=== PATIENT | female | born 1995 | race Caucasian/White ===

== ENCOUNTER 2019-08-20 08:50 | Day surgery (SDC) | payer BC ==
[2019-08-20] MEDS ORDERED: Dextrose 5%-Lactated Ringers 1,000 ML IV SCH (09:30)
[2019-08-20] MEDS ORDERED: fentaNYL 100 MCG/2 ML SDV ONE (10:08)
[2019-08-20] MEDS ORDERED: Propofol 200 MG/20 ML SDV ONE (10:08)
[2019-08-20] MEDS ORDERED: Midazolam 1 MG/ML 2 ML SDV ONE (10:08)
[2019-08-20] MEDS ORDERED: Glycopyrrolate 0.2 MG/ML 2 ML SDV IVPUSH ONE (10:15)
--- NOTE | 2019-08-30 09:46 | OR ---
DATE OF PROCEDURE: 08/20/2019 SURGEON: Kamaljit Vazquez MD PREOPERATIVE DIAGNOSES: 1. Severe gastroesophageal reflux disease associated with moderate-sized hiatal hernia and wide-open esophagogastric junction. 2. Mild antral gastritis. OPERATIVE PROCEDURE: Esophagogastroduodenoscopy with: 1. Biopsies of esophagogastric junction. 2. Biopsies of antrum for CLOtest. ANESTHESIA: IV sedation. INDICATIONS FOR PROCEDURE: This is a 24-year-old presenting with clinically quite severe gastroesophageal reflux disease which has become refractory to medical management. After preop evaluation and discussion, she wished to proceed with an upper endoscopy with the aim of identifying her current anatomy and plans for subsequent anti-reflux procedure being performed. The potential risks of the procedure including bleeding and perforation were discussed, and the patient wishes to proceed. DETAILS OF PROCEDURE: The patient was taken to the operating room, placed in a left lateral decubitus position. IV sedation was administered, after which the upper GI endoscope was passed orally through length of the esophagus into the stomach with retroflexion view of the fundus, thereafter through the pyloric channel and into the junction of 3rd and 4th portions of the duodenum. Findings included some reddening of the hypopharynx and larynx, consistent with ongoing gastroesophageal reflux disease. The upper esophageal sphincter and esophageal body were unremarkable. As one approached the EG junction, the patient was noted to have 1 to 2 cm hiatal hernia, but also essentially wide-open esophagogastric junction with no angulation present. There was moderately active gastroesophageal reflux disease with the mucosa above the EG junction being friable and somewhat reddened. No ulcers were seen. Within the stomach, there was small amount of retained bile. There was some patchy redness in the antrum. Otherwise, the pyloric channel and visualized portions of the duodenum were unremarkable. At this point, biopsies were taken from the antrum and sent for CLOtest for H pylori. Multiple biopsies were then obtained from the esophagogastric junction, sent for histologic evaluation and no bleeding was seen and the procedure was then concluded. As discussed with the patient preoperatively, the plan at this point will be to proceed with a laparoscopic Paulette fundoplication tomorrow given the severe degree of symptoms prior to the procedure as well as afterwards when she is considered to be clear headed. Potential risks of the procedure including bleeding, infection, injury to the surrounding area, problems with fundoplication such as dysphagia, gas bloat syndrome, disorders of gastric emptying rate, as well as the need for incomplete reflux symptoms were gone over as well as a small chance for needing a reoperation for problems such as persistent dysphagia. These were reviewed with the patient and the plan is to proceed with the fundoplication tomorrow. Kamaljit Vazquez MD /[id number]
== END 2019-08-20 13:32 | disposition home or self-care (01) ==
LOC: JP.SDS 08:50
PROVIDERS: ATTEND Surgery
DX: K21.0 Gastro-esophageal reflux disease with esophagitis (principal); K29.70 Gastritis, unspecified, without bleeding; K44.9 Diaphragmatic hernia without obstruction or gangrene; F17.210 Nicotine dependence, cigarettes, uncomplicated
CPT/HCPCS: 43239; 81025; 87081; 88305; J2250; J2704; J3010; J3490; J7121

== ENCOUNTER 2019-08-21 07:25 | Inpatient (IN) | payer BC ==
[~2019-08-21 07:25] MED LIST: Dexamethasone 4 MG/ML SDV ONE; Glycopyrrolate 0.2 MG/ML 5 ML MDV ONE; Meropenem 500 MG in Sodium Chloride 0.9% 50 ML IV ONE; Neostigmine Methylsulfate 1 MG/ML 5 ML Syringe ONE; Ondansetron 4 MG/2 ML SDV ONE; Propofol 200 MG/20 ML SDV ONE; Rocuronium 50 MG/5 ML Vial ONE; Succinylcholine 200 MG/10 ML MDV ONE; fentaNYL 250 MCG/5 ML SDV ONE
[2019-08-21] MEDS ORDERED: Scopolamine 1.5 MG Transdermal Patch TOP SCH (07:30)
[2019-08-21] MEDS ORDERED: Acetaminophen 500 MG Tab PO ONE (07:30)
[2019-08-21] MEDS: Dextrose 5%-Lactated Ringers 1,000 ML IV SCH ×2 (08:07→22:12)
[2019-08-21] MEDS ORDERED: ceFAZolin 2 GM in Premix Bag 1 BAG IV ONE (09:00)
[2019-08-21] MEDS ORDERED: Ropivacaine 28 ML, dexAMETHasone 8 MG, EPINEPHrine 0.4 MG, Sodium Chloride 0.9% 49.6 ML NERVRT SCH ×4 (09:30)
[2019-08-21] MEDS ORDERED: Ketamine 500 MG/5 ML MDV IV SCH (09:30)
[2019-08-21] MEDS ORDERED: Ketamine 50 MG in Sodium Chloride 0.9% 49.5 ML IV SCH (09:30)
[2019-08-21] MEDS ORDERED: fentaNYL 250 MCG/5 ML SDV ONE (09:54)
[2019-08-21] MEDS ORDERED: Labetalol 20 MG/4 ML Syringe ONE (10:11)
[2019-08-21] MEDS ORDERED: Lactated Ringers 1,000 ML ONE (10:27)
[2019-08-21] MEDS ORDERED: fentaNYL 100 MCG/2 ML SDV IVPUSH ONE (10:49)
[2019-08-21] MEDS ORDERED: hydrOXYzine HCL 100 MG/2 ML SDV IM ONE (10:50)
[2019-08-21] MEDS ORDERED: HYDROmorphone 1 MG/ML Syringe IV PRN (11:50)
[2019-08-21] MEDS ORDERED: hydrOXYzine HCL 100 MG/2 ML SDV IM PRN (11:50)
[2019-08-21] MEDS ORDERED: Meclizine 25 MG Tab PO PRN (11:53)
[2019-08-21] MEDS: Ondansetron 4 MG/2 ML SDV IVPUSH PRN (12:09)
[2019-08-21] MEDS: Metoclopramide 10 MG/2 ML SDV IVPUSH SCH ×2 (13:00→19:48)
[2019-08-21] MEDS: HYDROmorphone 0.5 MG/0.5 ML Syringe IVPUSH PRN ×4 (13:09→19:47)
[2019-08-21] MEDS ORDERED: Pantoprazole 40 MG Vial IVPUSH SCH (14:00)
[2019-08-21] MEDS ORDERED: NORTREL PO SCH (14:00)
[2019-08-21] MEDS: ceFAZolin 2 GM in Premix Bag 1 BAG IV SCH ×2 (15:57→23:18)
[2019-08-21] MEDS: Escitalopram 20 MG Tab PO SCH (21:54)
[2019-08-21] MEDS: traZODone 50 MG Tab PO SCH (21:54)
[2019-08-21] MEDS: lamoTRIgine 100 MG Tab PO SCH (21:55)
[2019-08-21] MEDS: NORTREL PO SCH (23:18)
[2019-08-22] MEDS: HYDROmorphone 0.5 MG/0.5 ML Syringe IVPUSH PRN (02:06)
[2019-08-22] MEDS: Metoclopramide 10 MG/2 ML SDV IVPUSH SCH ×4 (02:09→19:40)
[2019-08-22] MEDS ORDERED: Sodium Chloride 0.9% 10 ML Syringe IV PRN (07:20)
[2019-08-22] MEDS: lamoTRIgine 100 MG Tab PO SCH ×2 (08:52→22:02)
[2019-08-22] MEDS: SCOPOLAMINE PATCH CHECK TOP SCH (08:53)
[2019-08-22] MEDS: HYDROmorphone 2 MG Tab PO PRN ×4 (11:05→23:24)
[2019-08-22] MEDS: hydrOXYzine HCl 25 MG Tab PO PRN ×3 (14:06→22:40)
[2019-08-22] MEDS ORDERED: Pantoprazole 40 MG Tab.CR PO SCH (16:30)
[2019-08-22] MEDS: Ondansetron 4 MG/2 ML SDV IVPUSH PRN ×2 (18:28→22:46)
[2019-08-22] MEDS ORDERED: Benzocaine/Cetylpyridinium/Menthol Lozenge MUCMEM PRN (19:42)
[2019-08-22] MEDS: traZODone 50 MG Tab PO SCH (22:02)
[2019-08-22] MEDS: NORTREL PO SCH (22:03)
[2019-08-22] MEDS: Escitalopram 20 MG Tab PO SCH (22:03)
[2019-08-23] MEDS: Metoclopramide 10 MG/2 ML SDV IVPUSH SCH ×2 (02:48→07:26)
[2019-08-23] MEDS: SCOPOLAMINE PATCH CHECK TOP SCH (09:02)
[2019-08-23] MEDS: lamoTRIgine 100 MG Tab PO SCH (09:03)
[2019-08-23] MEDS ORDERED: Scopolamine 1.5 MG Transdermal Patch TRDERM ONE (10:55)
--- NOTE | 2019-08-24 13:21 | PN ---
DATE OF SERVICE: 08/22/2019 The patient has been afebrile with stable vital signs. Oral intake was fairly good with clear liquids after Paulette fundoplication yesterday. We will go up to full-liquid diet today, strictly oral pain medicine, and she will likely be ready for discharge home tomorrow. Kamaljit Vazquez MD /[id number]
--- NOTE | 2019-08-24 13:51 | DISCH ---
FINAL DIAGNOSES: 1. Gastroesophageal reflux disease refractory to medical management. 2. History of anxiety. 3. Lymphadenopathy adjacent to gastroesophageal junction. OPERATIVE PROCEDURES: On 08/21/2019, diagnostic laparoscopy with: 1. Paulette fundoplication with repair of paraesophageal diaphragmatic hernia with mesh. 2. Excision of the lymph nodes adjacent to the esophagogastric junction. SUMMARY: This is a 24-year-old with gastroesophageal reflux disease, that has become refractory to medical management. This has been quite severe, and the patient urgently was seeking control of the problem. After initial upper endoscopy on 08/20/2019, the patient underwent laparoscopic Paulette fundoplication with mesh augmentation of the crural repair, along with excision of some enlarged lymph nodes adjacent to the esophagogastric junction, the latter likely being associated with the ongoing inflammation in that area. Postoperatively, the patient had a little bit of nausea with the use of Atarax and/or Dilaudid, but otherwise is tolerating the full liquid diet satisfactory. She will be sent home on Tylenol 650 mg p.o. q.4 hours p.r.n. pain and Zofran 4 mg ODT q.4 hours p.r.n. nausea, #30, refill x1. She was offered scopolamine patch be placed at the time of discharge, and this will be held off until post discharge day #4. Otherwise, she will continue her usual medications, other than will have her go off of the Pepcid. She will be following up with Dr. Vazquez at [facility] on 09/02/2019.
--- NOTE | 2019-08-31 12:25 | OR ---
DATE OF PROCEDURE: 08/21/2019 SURGEON: Kamajlit Vazquez MD PREOPERATIVE DIAGNOSIS: Gastroesophageal reflux disease refractory to medical management. POSTOPERATIVE DIAGNOSES: 1. Gastroesophageal reflux disease refractory to medical management associated with paraesophageal diaphragmatic hernia. 2. Lymphadenopathy adjacent to the esophagogastric junction. OPERATIVE PROCEDURES: Diagnostic laparoscopy with: 1. Paulette fundoplication with repair of paraesophageal diaphragmatic hernia with mesh (62890). 2. Excision of lymph nodes adjacent to the esophagogastric junction (91500). ANESTHESIA: General. CONTRACT PROJECT MANAGER: Adelina Lai PA-C INDICATIONS FOR PROCEDURE: This is a 24-year-old female who presented earlier this week with severe gastroesophageal reflux disease that is refractory to medical management. After workup yesterday, she wished to proceed with a Paulette fundoplication at this time. Potential risks of the procedure as outlined in yesterday's upper endoscopy report were reviewed once again with the patient this morning, and she wishes to proceed. DETAILS OF PROCEDURE: The patient was taken to the operating room and placed in a supine position. After general endotracheal anesthesia was induced, she was converted to a lithotomy position. Holland catheter was inserted. The abdomen was then prepped and draped. At 15 cm inferior and 5 cm left of the xiphoid process, a transverse incision was made and peritoneal cavity entered under direct visualization with an Optiview trocar, inflated to 15 mmHg pressure of CO2. Laparoscope was then reinserted. No underlying trocar insertion site injuries were seen. Bilateral transverse abdominis plane blocks were then placed, and 4 additional trocars were placed across the upper and mid abdomen. Upon elevation of liver, the patient was noted to have 2 distinct findings; 1 was significant involvement of the diaphragmatic hernia that was a paraesophageal type with prolapse of some perigastric fat and gastric fundus along with some omentum in a plane anterior to the course of the esophagus. The patient also had some enlarged lymph nodes adjacent to the esophagogastric junction, most likely related to inflammation, but to be sure that nothing more was going on with regard to lymph nodes, 2 of these were excised and sent for histologic evaluation. The hiatal hernia was reduced at this point and the peritoneum overlying it incised and reflected downward. The peritoneum between the esophagus and the right and left crura was then divided, and the dissection plane was then established behind the esophagus. Once the retroesophageal window was established, the esophagus was freed up of some remaining soft tissue attachments up to the point where there was a 5 cm length of intraabdominal esophagus present. The crural repair was then accomplished with 0 Ethibond sutures reinforced with PTFE pledgets. Because of the size of the crural defect and the patient's relatively young age, Phasix mesh, which is a dissolvable mesh, was placed over the crural repair and affixed there with titanium tacking screws. This would provide a more dense scar at the point of the crural repair. At this point, the upper greater curvature of the stomach was freed up from the omentum and then the short gastric vessels, including the highest and posterior short gastric vessels, were divided with harmonic Scalpel. This resulted in a very nicely mobile fundus, which was retrieved through the retroesophageal window. Anesthesia then passed the guidewire orally through the length of the esophagus into the stomach, and then a 54-Romanian Savary dilator was placed and brought across the esophagus and into the stomach and a 3-stitch 2 cm fundoplication was accomplished with 0 Ethibond sutures reinforced with PTFE pledgets. Each of the stitches incorporated some esophagus to help fix it in position, and 2 sutures were then placed between the fundoplication and the diaphragm with the same stitch-pledget combination to help avoid a slipped Paulette, i.e. keeping the fundoplication up on the diaphragm. At this point, no further problems were noted. Dilator and wire were removed. The patient's fundoplication was found to be satisfactorily floppy. Trocars were then sequentially removed and peritoneal cavity deflated. Incisions were closed with 4-0 Vicryl skin stitch and dressing applied. The patient was taken to the recovery room in satisfactory condition. Physician certified surgical first assistant, Adelina Lai, played an essential role in assisting in this case helping to position the patient, retract structures as needed, as well as suturing and cutting sutures when indicated. Her presence improved the patient's safety and decreased operative time. Kamaljit Vazquez MD /[id number]
== END 2019-08-23 12:00 | disposition home or self-care (01) | DRG 220 ==
LOC: JP.SDS 07:25 → JP.MS 10:50 → JP.SDS 08-22 10:50
PROVIDERS: ADMIT Surgery; ATTEND Surgery
PROC: 0DV44ZZ Restriction of Esophagogastric Junction, Percutaneous Endoscopic Approach (ICD-10-PCS; principal; 2019-08-21)
PROC: 0BUT4JZ Supplement Diaphragm with Synthetic Substitute, Percutaneous Endoscopic Approach (ICD-10-PCS; principal; 2019-08-21)
PROC: 07BD4ZZ Excision of Aortic Lymphatic, Percutaneous Endoscopic Approach (ICD-10-PCS; principal; 2019-08-21)
DX: K21.9 Gastro-esophageal reflux disease without esophagitis (principal); F41.9 Anxiety disorder, unspecified; R59.1 Generalized enlarged lymph nodes; F17.210 Nicotine dependence, cigarettes, uncomplicated; K44.9 Diaphragmatic hernia without obstruction or gangrene
CPT/HCPCS: 88305; 94762; A9270-GY; C1713; C1781; C9113; J0171; J0330; J0690; J1100; J1170; J2405; J2704; J2710; J2765; J2795; J3010; J3410; J3490; J7050; J7120; J7121

== ENCOUNTER 2021-01-01 14:20 | Emergency (ER) | payer OTHER, BC ==
--- NOTE | 2021-01-01 14:30 | EDM.PDOC ---
ED HPI GENERAL MEDICAL PROBLEM - General Stated Complaint: MEDICAL VIA [facility] Time Seen by Provider: 01/01/21 14:25 Source of Information: Reports: Patient, EMS, RN Notes Reviewed History Limitations: Reports: No Limitations - History of Present Illness INITIAL COMMENTS - FREE TEXT/NARRATIVE: 25-year-old female presents emergency department today following trauma at work, she fell backwards and tripped over a pallet she is not sure if she hit the concrete floor or hit the wooden palate estimate loss of consciousness about a minute she is complaining of pain in the back of her head and headache and neck pain she does complain of numbness and tingling in her fingers. Has no past medical history takes no medications no allergies last meal was last night - Related Data Allergies Allergy/AdvReac Type Severity Reaction Status Date / Time No Known Allergies Allergy Verified 01/01/21 14:32 Home Meds: Home Meds Escitalopram [Lexapro] 20 mg PO BEDTIME 03/21/19 [History] lamoTRIgine [Lamictal] 100 mg PO BID 03/21/19 [History] traZODone 100 mg PO BEDTIME 03/21/19 [History] Norethindrone-Ethin. Estradiol [Nortrel 1-35 28 Tablet] 1 each PO DAILY 08/19/19 [History] Promethazine [Phenergan] 25 mg PO Q6H PRN 08/19/19 [History] Past Medical History HEENT History: Reports: Impaired Vision Other HEENT History: wears glasses Gastrointestinal History: Reports: Chronic Constipation, Gastritis, Hiatal Hernia Neurological History: Reports: Concussion, Migraines Psychiatric History: Reports: Anxiety, Bipolar, Depression, Panic Attack, Psych Hospitalization(s), Suicide Attempt - Past Surgical History HEENT Surgical History: Reports: None GI Surgical History: Reports: Appendectomy, Cholecystectomy, EGD Neurological Surgical History: Reports: None Dermatological Surgical History: Reports: None Social & Family History - Family History Family Medical History: No Pertinent Family History HEENT: Reports: Cataract Cardiac: Reports: [place] : Reports: UTI, Recurrent OBGYN: Reports: Dysfunctional uterine bleeding Psychiatric: Reports: Bipolar, Depression, Psych Hospitalization(s), Suicide Attempt Endocrine/Metabolic: Reports: Hypothyroidism Oncologic: Reports: Colon, Prostate, Skin - Caffeine Use Caffeine Use: Reports: Coffee, Tea Caffeine Use Comment: rarely ED ROS GENERAL - Review of Systems Review Of Systems: See Below Constitutional: Reports: No Symptoms Respiratory: Reports: No Symptoms Cardiovascular: Reports: No Symptoms GI/Abdominal: Reports: No Symptoms Musculoskeletal: Reports: Neck Pain Neurological: Reports: Headache, Numbness, Tingling ED EXAM, UPPER BACK/NECK PAIN - Physical Exam Exam: See Below Text/Narrative:: Primary survey GCS 15 is open patent and clear lungs are clear to auscultation bilaterally cardiovascular states regular rate and rhythm S1-S2 Secondary survey General: Female, mild, alert and oriented x3 HEENT: head is atraumatic normocephalic, eyes pupils equal round reactive to light, sclera clear no conjunctivitis appreciated. Ears tympanic membranes clear and donahue landmarks and light reflex are present bilaterally canals are clear. Nose no septal deviation, nares are clear, no blood present. Mouth mucosa is moist and pink no erythema or exudate noted in soft palate, tongue is midline uvula is midline, dentition is intact. Neck: Placed in a c-collar at this time Nodes: Cervical nodes subclavicular nodes nontender no palpable lymphadenopathy noted. Lungs: clear to auscultation bilaterally with symmetrical respirations, no adventitious noise appreciated. CV: Regular rate and rhythm S1 and S2 appreciated no murmurs rubs or gallops noted. Abdomen: Soft, nontender, no palpable masses or organomegaly appreciated, no distention no guarding bowel sounds are present, [scars ]. Neuro: Cranial nerves II test with pupillary light reflex 5 mm to 3 mm bilaterally, CN III test pupillary constriction, lid elevation and eye abduction bilaterally, CN IV downward movement of eyes bilaterally, CN V good jaw movement, CN lateral deviation of the eyes bilaterally to finger movement, CN VII symmetrical smile shows teeth without difficulty, CN VIII pass finger rub to ears bilaterally, CN IX adequate voice and tone, CN X adequate voice and tone no difficulty swallowing, CN XI can shrug shoulders without difficulty, CN XII can stick tongue out without difficulty, cranial nerves II to XII intact as tested, power is 5 x 5 in upper extremities equal strength does have sensation is on both extremities full range of motion lower extremity Skin: Warm and dry, intact Extremities: No lower extremity edema appreciated, . Course - Vital Signs Last Recorded V/S: Last Vital Signs Temp Pulse 65 01/01/21 15:34 Resp 16 01/01/21 15:34 BP 108/70 01/01/21 15:34 Pulse Ox 99 01/01/21 15:34 - Orders/Labs/Meds Meds: Medications Discontinued Medications Generic Name Dose Route Start Last Admin Trade Name Marvin PRN Reason Stop Dose Admin Fentanyl 50 mcg 01/01/21 14:44 01/01/21 14:53 Fentanyl 100 Mcg/2 Ml Sdv IVPUSH 01/01/21 14:45 50 mcg ONETIME ONE Administration Ondansetron HCl 4 mg 01/01/21 14:44 01/01/21 14:49 Ondansetron 4 Mg/2 Ml Sdv IVPUSH 01/01/21 14:45 4 mg ONETIME ONE Administration Departure - Departure Time of Disposition: 15:59 Disposition: Home, Self-Care 01 Condition: Fair Clinical Impression: Concussion with brief (less than one hour) loss of consciousness Head injury Qualifiers: Encounter type: initial encounter Qualified Code(s): S09.90XA - Unspecified injury of head, initial encounter - Discharge Information Instructions: Head Injury, Adult Referrals: PCP,None [Primary Care Provider] - Additional Instructions: Use Tylenol Motrin as needed for pain control, use Flexeril as needed for muscle relaxant, please followup with your primary care provider in 3-5 days if not better, please call return to the emergency department with worsening of symptoms. Sepsis Event Note (ED) - Focused Exam Vital Signs: Vital Signs Pulse Resp BP Pulse Ox 01/01/21 15:34 65 16 108/70 99 - Assessment/Plan Plan: Assessment Acuity = acute Site and laterality = head injury Etiology = fall hitting the back of her head Manifestations = none Location of injury = work Lab values = CT scan of the head and neck showed no acute process Plan Good relief with fentanyl and Zofran provided in the emergency department prescription written for ibuprofen 600 mg 1 tab p.o. 4 times daily as needed #30 and Flexeril 10 mg p.o. 3 times daily as needed 3 times daily as needed total of 15 follow-up primary care 3 to 5 days for reevaluation handout for concussion provided This note was dictated using [employer] voice recognition software please call with any questions on syntax or grammar.
[2021-01-01] MEDS ORDERED: fentaNYL 100 MCG/2 ML SDV IVPUSH ONE (14:44)
[2021-01-01] MEDS ORDERED: Ondansetron 4 MG/2 ML SDV IVPUSH ONE (14:44)
--- NOTE | 2021-01-01 15:33 | CRLCT ---
For Patients: As a result of the Century Cures Act, medical imaging exams and procedure reports are released immediately into your electronic medical record. You may view this report before your referring provider. If you have questions, please contact your health care provider. INDICATION: Fall. Head injury. Head and neck. TECHNIQUE: CT head without IV contrast. FINDINGS: No intracranial hemorrhage, edema, or mass effect. No significant abnormalities intracranially or extracranially. Remainder negative. IMPRESSION: No acute intracranial disease. Please note that all CT scans at this facility use dose modulation, iterative reconstruction, and/or weight-based dosing when appropriate to reduce radiation dose to as low as reasonably achievable. Dictated by Daniele Brown MD @ 01/01/2021 3:30:[address] Daniele Brown @ Jan 01 2021 3:30PM
--- NOTE | 2021-01-01 15:37 | CRLCT ---
For Patients: As a result of the Cures Act, medical imaging exams and procedure reports are released immediately into your electronic medical record. You may view this report before your referring provider. If you have questions, please contact your health care provider. INDICATION: Fall. Head injury. Head and neck pain. Technique : CT cervical spine without IV contrast including axial, coronal and sagittal images. FINDINGS: No acute fracture or subluxation in the cervical or upper thoracic spine. Mild cervical thoracic curve with loss of normal cervical lordosis may be related to cervical spasm. Small low-density lesion in the left upper thyroid. Residual thymus in the anterior/superior mediastinum. Remainder negative. IMPRESSION: 1. No acute fracture or subluxation in the cervical or upper thoracic spine. 2. Loss of cervical lordosis can be seen in cervical spasm. 3. Small low-density lesion with left thyroid nonspecific. 4. Small uncalcified nodule left upper lung posteriorly. Please note that all CT scans at this facility use dose modulation, iterative reconstruction, and/or weight-based dosing when appropriate to reduce radiation dose to as low as reasonably achievable. Dictated by Daniele Brown MD @ 01/01/2021 3:36:[address] Daniele Brown @ Jan 01 2021 3:36PM
== END 2021-01-01 16:13 | disposition home or self-care (01) ==
LOC: JP.ED 14:20
DX: S06.0X1A Concussion with loss of consciousness of 30 minutes or less, initial encounter (principal); W01.0XXA Fall on same level from slipping, tripping and stumbling without subsequent striking against object, initial encounter
CPT/HCPCS: 70450; 72125; 96374; 96375; 99284; J2405; J3010